=== PATIENT | female | born 1955 | race Caucasian/White ===

== ENCOUNTER 2016-09-27 05:40 | Day surgery (SDC) | payer OTHER ==
[2016-09-27] MEDS ORDERED: IV START KIT ONE (05:53)
[2016-09-27] MEDS ORDERED: LACTATED RINGERS 1,000 ML ONE (05:53)
[2016-09-27] MEDS ORDERED: CEFAZOLIN SODIUM 2 GRAM PREMIX 100 ML IV PRN (06:00)
[2016-09-27] MEDS ORDERED: CEFAZOLIN SODIUM 2 GRAM PREMIX 100 ML IV ONE (06:27)
[2016-09-27 06:34] LABS: HEMATOCRIT 43.8 % (37.0-47.0); HEMOGLOBIN 14.8 gm/l (12.0-16.0)
[2016-09-27] MEDS ORDERED: BUPIVACAINE 0.5% (PRES FREE) 30 ML VIAL ONE (07:06)
[2016-09-27] MEDS ORDERED: LIDOCAINE 1% (PRES FREE) 30 ML VIAL ONE (07:06)
--- NOTE | 2016-09-27 07:09 | HP ---
Maritza Espinosa HISTORY OF PRESENT ILLNESS: She is a 60-year-old who presented to my office last year with complaints of pain in the ball of the right foot with any increased activity consistently getting worse if she walks through the day. Her complaint was not changed by any conservative measures that were done with arch support, taping, the cortisone injections various. PAST MEDICAL HISTORY: Significant for back pain, anxiety, arthritis. 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 ALLERGIES: No known drug allergies. CURRENT MEDICATIONS: Carbamazepine. FAMILY HISTORY: Significant for type 2 diabetes in the family, arthritis. SOCIAL HISTORY: Light usage of alcohol. No tobacco use. PHYSICAL EXAMINATION: VITAL SIGNS: Blood pressure of 128/88, pulse 81, current height of 5 feet 1 inch, weight 132 pounds. HEENT: No abnormalities are noted in the ears and eyes. Throat shows no masses or inflammation. NECK: Shows no lymphadenopathy. LUNGS: Clear to auscultation in all ivey. HEART: Regular rate and rhythm. No murmurs or gallops. ABDOMEN: Soft, nontender, nondistended. EXTREMITIES: Lower extremity exam pedal pulses are intact. Filling time 2 seconds. Skin is pink. NEUROLOGICAL: Gross sensation intact. DERM: Temperature is warm, texture if dry, turgor is good. There is positive flow to the digits. MUSCULOSKELETAL: First MP joint motion on the right side is less than 5 degrees dorsal flex, 5 degrees plantar flex. There is crepitation with range of motion of the joint and bony block noted on the dorsum of the right first MP joint. Her first MP joint motion was limited to any active movement. 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 PLAN: She will be scheduled for a cheilectomy of the right first MP joint. This will be done under MAC sedation with local block. All risks and complications were explained and she understands these contraindications. She is scheduled for this procedure at [facility] on 09/27/2016. JOB: [id number]
[2016-09-27] MEDS ORDERED: FENTANYL 100 MCG/2 ML VIAL ONE (07:10)
[2016-09-27] MEDS ORDERED: PROPOFOL 40 ML IV ONE (07:10)
[2016-09-27] MEDS ORDERED: METOCLOPRAMIDE HCL 5 MG/ML 2ML VIAL ONE (07:10)
[2016-09-27] MEDS ORDERED: LIDOCAINE 2% (PRES FREE) 5 ML VIAL ONE (07:10)
[2016-09-27] MEDS ORDERED: MIDAZOLAM HCL 1 MG/ML 2ML VIAL ONE (07:10)
[2016-09-27] MEDS ORDERED: KETOROLAC TROMETHAMINE 30 MG/ML 1 ML VIAL ONE (07:39)
[2016-09-27] MEDS ORDERED: OXYCODONE HCL 5 MG TABLET PO PRN (08:29)
[2016-09-27] MEDS ORDERED: ON-Q PUMP/ROPIVACAINE 0.2% 400 ML in PREMIX BAG 1 EACH NB SCH (08:30)
[2016-09-27] MEDS ORDERED: OXYCODONE HCL 5 MG TABLET ONE (08:43)
--- NOTE | 2016-09-30 13:09 | OP ---
Maritza Espinosa DATE OF SURGERY: 09/27/2016 SURGEON: Vikas Morton MD. PREOPERATIVE DIAGNOSIS: Hallux limitus, hallux rigidus right first metatarsophalangeal joint. POSTOPERATIVE DIAGNOSIS: Hallux limitus, hallux rigidus right first metatarsophalangeal joint. PROCEDURE: Cheilectomy of the right first metatarsophalangeal joint. ANESTHESIA: MAC sedation with local anesthetic block using a total of 18 mL of 1% lidocaine and 0.5% Marcaine in a first degree block to the right foot. HEMOSTASIS: Right ankle tourniquet inflated to 250 mmHg for a total of 35 minutes. ESTIMATED BLOOD LOSS: Right foot was less than 10 mL. MATERIALS: 3-0 Vicryl, 3-0 Prolene, one On-Q pain pump. PROCEDURE IN DETAIL: The patient was brought into the operating room and laid on the operating room table in supine position. After she was adequately sedated we anesthetized the foot with the above said anesthetic block. Prepped and draped the foot in the standard sterile fashion using an Esmarch we exsanguinated blood from the right foot and inflated the ankle tourniquet at this time. Attention was drawn to the dorsum of the right foot where a longitudinal incision was made over the midline of the first metatarsophalangeal joint just medial to the EHL tendon and this incision was deepened to the epidermis and dermis about 3 to 4 cm proximal to the joint line and 2 cm distal to the joint line. The incision was deepened to the epidermis and dermis. All superficial vessels were Bovie cautery using Metzenbaum scissors. We deepened through the subcutaneous tissue down to the joint capsule. Using sharp dissection we performed a capsulotomy. The capsular tissue off the head of the first metatarsal off the base of the proximal phalanx. Once we had adequate exposure to the head of the first metatarsal we proceeded into the first IM space with the same incision, performed a lateral capsulorrhaphy and release of the lateral capsular structures. We then used a sagittal saw and removed the dorsal third of the head of the first metatarsal removing all osteophytes. We then using the sagittal saw we then removed the medial eminence off the head of the first metatarsal. Using a bone rongeur we removed the lip off the base of the proximal phalanx dorsally, medially, and laterally. We then placed in the McGlamry scoop underneath the head of the first metatarsal and released the sesamoid apparatus both tibia and fibula sesamoid space. At this point we checked range of motion of the joint noted to be about 60 degrees dorsal, 20 to 25 degrees plantarly. No crepitation noted with range of motion. There is some denuded cartilage noted on the dorsal portion of the first metatarsal head that would remain. At this point, we took a bone vilma and smoothed the head of the first metatarsal down nice and smooth. We irrigated the wound with saline and placed an On-Q pain pump in the wound. We then went ahead and closed the periosteum joint capsule back together with 3-0 Vicryl in a running fashion. We then closed the superficial structure with 3-0 Vicryl in a simple interrupted fashion and then closed the skin with 3-0 Prolene in a horizontal mattress fashion. The wound was dressed with Xeroform gauze and dry sterile dressings. The patient tolerated the procedure well. The tourniquet was let down. There was no perfusion of the foot. She will follow up in my office in 72 hours for postoperative check. JOB: [id number]
== END 2016-09-27 10:00 | disposition home or self-care (01) ==
LOC: SDC 05:40
PROVIDERS: ATTEND Podiatrist
DX: M20.21 Hallux rigidus, right foot (principal); M19.071 Primary osteoarthritis, right ankle and foot; F41.9 Anxiety disorder, unspecified; Z87.891 Personal history of nicotine dependence
CPT/HCPCS: 85014; 85018; 28289; J3010; A9270; J2765; J1885; J2250; J2001; J7120; J0690